=== PATIENT | male | born 1975 | race Caucasian/White ===

== ENCOUNTER 2016-09-04 17:01 | Inpatient (IN) | payer OTHER, MEDICAID ==
[~2016-09-04] VITALS: Ht 170.2 cm; Wt 75.9 kg
[2016-09-04 18:14] LABS: BASOPHILS % (AUTO) 0.5 % (0.0-2.0); EOSINOPHILS % (AUTO) 1.7 % (1.0-6.0); HEMATOCRIT 44.3 % (41-53); HEMOGLOBIN 14.7 g/dL (13.5-17.5); LYMPHOCYTES # (AUTO) 1.9 K/uL (1.0-4.8); MEAN CORPUSCULAR HEMOGLOBIN 28.8 pg (26.0-34.0); MEAN CORPUSCULAR HGB CONC 33.1 G/dL (31.0-37.0); MEAN CORPUSCULAR VOLUME 87 fL (80-100); MONOCYTES # (AUTO) 0.4 K/uL (0.1-1.0); MONOCYTES % (AUTO) 5.9 % (2.0-9.0); NEUTROPHILS # (AUTO) 4.9 K/uL (1.8-7.7); NEUTROPHILS % (AUTO) 65.9 % (40.0-70.0); PLATELET COUNT (AUTO) 239 K/uL (150-450); RED CELL DISTRIBUTION WIDTH 12.7 % (11.5-14.5); WHITE BLOOD COUNT (AUTO) 7.5 K/uL (4.5-11.0)
[2016-09-04 18:30] LABS: ANION GAP 7 mmol/L (8-16); CALCIUM, TOTAL 9.2 mg/dL (8.8-10.5); CARBON DIOXIDE 30 mmol/L (22-29); CHLORIDE 103 mmol/L (98-107); CREATININE 1.16 mg/dL (0.60-1.30); GLOMERULAR FILTR. RATE CALC > 60 mL/min (>60); POTASSIUM 4.4 mmol/L (3.5-5.1); SODIUM SERUM 140 mmol/L (136-145); UREA NITROGEN, BLOOD 18 mg/dL (7-18)
[2016-09-04 18:35] LABS: ALANINE AMINOTRANSFERASE 23 U/L (12-78); ALBUMIN 4.1 g/dL (3.4-5.0); ASPARTATE AMINOTRANSFERASE 7 U/L (15-37); BILIRUBIN,TOTAL 0.6 mg/dL (0.1-1.0); TOTAL PROTEIN, SERUM 7.6 g/dL (6.4-8.2)
[2016-09-04] MEDS ORDERED: HALOPERIDOL 5 MG TABLET PO PRN (18:45)
[2016-09-04] MEDS ORDERED: ZOLPIDEM TARTRATE 10 MG TABLET PO PRN (18:45)
[2016-09-04] MEDS ORDERED: LORazepam 2 MG TABLET PO PRN (18:45)
[2016-09-04 20:15] VITALS: BP 147/82
[2016-09-05 08:30] VITALS: BP 134/70
[2016-09-05 16:35] VITALS: BP 119/79
[2016-09-05] MEDS: OLANZapine 5 MG TABLET PO SCH (21:22)
[2016-09-06 08:02] VITALS: BP 114/64
[2016-09-06] MEDS: OLANZapine 5 MG TABLET PO SCH ×2 (09:21→20:25)
[2016-09-06 16:34] VITALS: BP 116/70
[2016-09-07] MEDS: OLANZapine 5 MG TABLET PO SCH ×2 (08:24→20:04)
[2016-09-07 08:30] VITALS: BP 129/86
[2016-09-07 16:39] VITALS: BP 111/72
[2016-09-08 08:00] VITALS: BP 131/86
[2016-09-08] MEDS: OLANZapine 5 MG TABLET PO SCH ×2 (08:19→20:31)
[2016-09-08 16:25] VITALS: BP 112/79
[2016-09-09] MEDS ORDERED: OLAN5TAB2 PO (08:31)
[2016-09-09] MEDS: OLANZapine 5 MG TABLET PO SCH (08:46)
== END 2016-09-09 12:10 | disposition home or self-care (01) | DRG 885 ==
LOC: EMS 17:02 → 3EC 19:00 → 3EX 09-06 22:02
PROVIDERS: ADMIT Psychiatry & Neurology Child & Adolescent Psychiatry; ATTEND Psychiatry & Neurology Child & Adolescent Psychiatry
DX: F20.0 Paranoid schizophrenia (principal); F41.9 Anxiety disorder, unspecified; K08.409 Partial loss of teeth, unspecified cause, unspecified class; F31.9 Bipolar disorder, unspecified; R68.84 Jaw pain; Z91.19 Patient's noncompliance with other medical treatment and regimen
CPT/HCPCS: 99285; G0480

== ENCOUNTER 2018-07-31 14:11 | Emergency (ER) | payer MEDICAID, OTHER ==
[~2018-07-31] VITALS: Ht 172.7 cm; Wt 81.8 kg
[~2018-07-31 14:11] MED LIST: OLAN5TAB2 PO
[2018-07-31] MEDS ORDERED: KETOROLAC TROMETHAMINE 30 MG/ML VIAL IM ONE (16:00)
[2018-07-31 16:22] VITALS: BP 119/75
== END 2018-07-31 16:24 | disposition home or self-care (01) ==
LOC: EMS 14:11
DX: S20.211A Contusion of right front wall of thorax, initial encounter (principal); F41.9 Anxiety disorder, unspecified; F31.9 Bipolar disorder, unspecified; Y04.0XXA Assault by unarmed brawl or fight, initial encounter; Y93.89 Activity, other specified; Y92.89 Other specified places as the place of occurrence of the external cause; Y99.8 Other external cause status
CPT/HCPCS: 71101; 96372; 99283; J1885

== ENCOUNTER 2022-09-30 08:15 | Inpatient (IN) | payer MEDICAID, OTHER ==
[~2022-09-30] VITALS: Ht 167.6 cm; Wt 74.8 kg
[2022-09-30 09:14] LABS: BASOPHILS % (AUTO) 0.9 % (0.0-2.0); EOSINOPHILS % (AUTO) 0.9 % (1.0-6.0); HEMATOCRIT 42.6 % (41-53); HEMOGLOBIN 14.6 g/dL (13.5-17.5); LYMPHOCYTES # (AUTO) 1.7 K/uL (1.0-4.8); LYMPHOCYTES % (AUTO) 20.4 % (22.0-44.0); MEAN CORPUSCULAR HEMOGLOBIN 29.7 pg (26.0-34.0); MEAN CORPUSCULAR HGB CONC 34.4 G/dL (31.0-37.0); MEAN CORPUSCULAR VOLUME 87 fL (80-100); MONOCYTES # (AUTO) 0.5 K/uL (0.1-1.0); MONOCYTES % (AUTO) 6.2 % (2.0-9.0); NEUTROPHILS # (AUTO) 6.1 K/uL (1.8-7.7); NEUTROPHILS % (AUTO) 71.6 % (40.0-70.0); PLATELET COUNT (AUTO) 236 K/uL (150-450); RED BLOOD CELL COUNT(AUTO) 4.93 MIL/uL (4.50-5.90); RED CELL DISTRIBUTION WIDTH 13.2 % (11.5-14.5)
[2022-09-30 09:22] LABS: ANION GAP 10 mmol/L (8-16); CALCIUM, TOTAL 9.3 mg/dL (8.8-10.5); CARBON DIOXIDE 25 mmol/L (22-29); CHLORIDE 105 mmol/L (98-107); CREATININE 1.14 mg/dL (0.60-1.30); GLOMERULAR FILTR. RATE CALC > 60 mL/min (>60); GLUCOSE,RANDOM 122 mg/dL (70-110); POTASSIUM 3.7 mmol/L (3.5-5.1); SODIUM SERUM 140 mmol/L (136-145); UREA NITROGEN, BLOOD 21 mg/dL (7-18)
[2022-09-30] MEDS ORDERED: DiphenhydrAMINE HCL 50 MG/ML VIAL IM ONE (09:30)
[2022-09-30] MEDS ORDERED: LORazepam 2 MG TABLET PO ONE (09:30)
[2022-09-30] MEDS ORDERED: LORazepam 2 MG/ML VIAL IM ONE (09:30)
[2022-09-30] MEDS ORDERED: HALOPERIDOL LACTATE 5 MG/ML VIAL IM ONE (09:30)
[2022-09-30] MEDS ORDERED: OLANZapine 5 MG RAPDIS TABLET PO ONE (09:30)
[2022-09-30 09:36] LABS: ALANINE AMINOTRANSFERASE 38 U/L (12-78); ALBUMIN 4.5 g/dL (3.4-5.0); ALKALINE PHOSPHATASE 59 U/L (46-116); ASPARTATE AMINOTRANSFERASE 26 U/L (15-37); BILIRUBIN,TOTAL 2.1 mg/dL (0.1-1.0); THYROID STIMULATING HORMONE 2.38 uIU/mL (0.36-3.74); TOTAL PROTEIN, SERUM 7.7 g/dL (6.4-8.2)
[2022-09-30 09:42] LABS: AMPHET/METH SCREEN,URINE POSITIVE (NEGATIVE); BARBITURATE SCREEN, URINE NEGATIVE (NEGATIVE); BENZODIAZEPINES SCREEN,URINE NEGATIVE (NEGATIVE); CANNABINOID SCREEN,URINE NEGATIVE (NEGATIVE); COCAINE SCREEN,URINE NEGATIVE (NEGATIVE); METHADONE SCREEN, URINE NEGATIVE (NEGATIVE); OPIATE SCREEN,URINE NEGATIVE (NEGATIVE); PHENCYCLIDINE SCREEN,URINE NEGATIVE (NEGATIVE)
[2022-09-30] MEDS ORDERED: ZOLPIDEM TARTRATE 10 MG TABLET PO PRN (10:30)
[2022-09-30] MEDS ORDERED: LORazepam 2 MG TABLET PO PRN (10:30)
[2022-09-30] MEDS ORDERED: HALOPERIDOL 5 MG TABLET PO PRN (10:30)
[2022-09-30 11:04] LABS: COVID AG,FIA SOURCE NASOPHARYNGEAL
[2022-09-30 16:09] VITALS: BP 107/78
[2022-09-30] MEDS ORDERED: PETROLATUM,WHITE 28 GM JELLY TP PRN (18:30)
[2022-09-30] MEDS ORDERED: DOCUSATE SODIUM 100 MG CAPSULE PO PRN (18:30)
[2022-09-30] MEDS ORDERED: IBUPROFEN 600 MG TABLET PO PRN (18:30)
[2022-09-30] MEDS ORDERED: BACITRACIN 28 GM OINTMENT TP PRN (18:30)
[2022-09-30] MEDS ORDERED: CloNIDine HCL 0.1 MG TABLET PO PRN (18:30)
[2022-09-30] MEDS ORDERED: MAGNESIUM HYDROXIDE SUSPENSION 30 ML UDCUP PO PRN (18:30)
[2022-09-30] MEDS ORDERED: ALBUTEROL SULFATE HFA 90 MCG/PUFF 8 GM INHALER IH PRN (18:30)
[2022-09-30] MEDS ORDERED: ACETAMINOPHEN 325 MG TABLET PO PRN (18:30)
[2022-09-30] MEDS ORDERED: ONDANSETRON HCL 4 MG TABLET PO PRN (18:30)
[2022-09-30] MEDS ORDERED: LOPERAMIDE HCL 2 MG CAPSULE PO PRN (18:30)
[2022-09-30] MEDS ORDERED: OMEPRAZOLE 20 MG CAPSULE PO PRN (18:30)
[2022-09-30] MEDS ORDERED: MAG HYDROX/AL HYDROX/SIMETH ES 30 ML SUSPENSION UDCUP PO PRN (18:30)
[2022-09-30 20:13] VITALS: BP 113/81
[2022-10-01 08:22] VITALS: BP 120/80
[2022-10-01 20:01] VITALS: BP 118/78
[2022-10-01] MEDS: OLANZapine 7.5 MG TABLET PO SCH (20:07)
[2022-10-02 09:01] VITALS: BP 124/56
[2022-10-02] MEDS: OLANZapine 7.5 MG TABLET PO SCH (20:16)
[2022-10-02 20:20] VITALS: BP 106/74
[2022-10-03 08:25] VITALS: BP 119/78
[2022-10-03 20:02] VITALS: BP 122/70
[2022-10-03] MEDS: OLANZapine 7.5 MG TABLET PO SCH (20:02)
[2022-10-04 08:32] VITALS: BP 110/80
[2022-10-04 20:11] VITALS: BP 114/78
[2022-10-04] MEDS ORDERED: OLAN7.5T22 PO (20:45)
[2022-10-04] MEDS: OLANZapine 7.5 MG TABLET PO SCH (20:47)
[2022-10-05 08:33] VITALS: BP 117/65
== END 2022-10-05 12:38 | disposition home or self-care (01) | DRG 750 ==
LOC: EMS 08:15 → B3A 13:47
PROVIDERS: ADMIT Psychiatry & Neurology Psychiatry; ATTEND Psychiatry & Neurology Psychiatry
DX: F20.9 Schizophrenia, unspecified (principal); F15.10 Other stimulant abuse, uncomplicated; F31.9 Bipolar disorder, unspecified; K59.00 Constipation, unspecified; Z20.822 Contact with and (suspected) exposure to COVID-19; F41.9 Anxiety disorder, unspecified; G47.00 Insomnia, unspecified; Z72.0 Tobacco use
CPT/HCPCS: 80053; 80307; 84443; 85025; G0480; J1200; J1630; J2060